=== PATIENT | female | born 1995 | race Two or more races ===

== ENCOUNTER 2024-09-28 08:30 | Outpatient (RCR) | payer MEDICAID, SELFPAY ==
--- NOTE | 2024-09-21 12:59 | PTNOTE_ITS ---
PT OP Initial Eval Patient Information Outpatient Physical Therapy Treatment Date: 09/21/24 Visit Reasons: Low back pain/Plantar Fascial Medical Diagnosis: Back Pain Treatment Dx #1: Back Pain Start of Care: 09/21/24 Date of Onset: 10 years ago Smoking Status Smoking Status: Never smoker Initial Assessment Subjective: Pt is a 29 y/o female reports of chronic back pain with intermittent pain down the left leg. Pt's most recent MRI showed L5-S1 4 mm central disc bulge. Pt has limitation with sitting, standing, chores, self care, walking, and performing recreational activities. Objective: L/S AROM: all motions are WFL Hip PROM: all motions are WFL except IR Hip MMTs: grossly 3/5 Special Test (+) slump (+) SLR Assessment: Pt demonstrate back pain with mobility deficits consistent with MRI findings of disc bulge leading to difficulty with ADLs. Pt will benefit from physical therapy to increase ROM, strength, and work on mobility. Short Term and Correction Goals 1) Decrease back pain to 2/10 in 6 wks to be able to sit and stand more than 30 mins 2) Increase core strength WFL in 6 wks to be able to perform recreational activities 3) Increase hip MMTs grossly to 4-/5 in 6 wks to be able to walk more than 30 mins 4) Indep with HEP Treatment Plan 1) Manual Therapy 2) Therapeutic Activities 3) Therapeutic Exercises 4) Modalities (ice, heat, traction) Frequency and Duration: 2 x wk for 6 wks Certification Dates: 09/21/24 to 12/22/24 Procedure Charges OP PT Eval Mod Complex 30 minutes: Yes
--- NOTE | 2024-09-26 11:28 | PT.ODAYNRPT ---
PT Outpatient Daily Note OP Daily Note Outpatient Physical Therapy Treatment Date: 09/26/24 Visit Reasons: Low back pain/Plantar Fascial Subjective: Pt continues to have pain down the left leg intermittently. Objective: Please see flow chart for list of ther ex performed Assessment: slight decrease in left LE radicular pain post PT session. Plan: Continue with PT and assess left LE pain Length of Time (minutes) of Treatment: 30 Minutes Procedure Charges Therapeutic Exercise 30 minutes: Yes
--- NOTE | 2024-09-28 12:01 | PT.ODAYNRPT ---
PT Outpatient Daily Note OP Daily Note Outpatient Physical Therapy Treatment Date: 09/28/24 Visit Reasons: Low back pain/Plantar Fascial Subjective: Pt's back and leg pain is better since last session. Objective: Please see flow chart for list of ther ex performed Assessment: centralized pain post last session. Pt respond wells to extension biased exercises Plan: Continue with PT Length of Time (minutes) of Treatment: 30 Minutes Procedure Charges Therapeutic Exercise 30 minutes: Yes
== END 2024-10-01 23:59 | disposition home or self-care (01) ==
LOC: CPTX 08:30
DX: M54.50 Low back pain, unspecified (principal); M79.605 Pain in left leg; R26.2 Difficulty in walking, not elsewhere classified; G89.29 Other chronic pain
CPT/HCPCS: 97110; 97162

== ENCOUNTER 2024-10-18 08:00 | Outpatient (RCR) | payer MEDICAID, SELFPAY ==
--- NOTE | 2024-10-05 10:33 | PT.ODAYNRPT ---
PT Outpatient Daily Note OP Daily Note Outpatient Physical Therapy Treatment Date: 10/05/24 Visit Reasons: Low back pain/Plantar fascial Subjective: Pt c/o low back pain. Objective: Please see flow sheet for ther ex list. Assessment: Pt demonstrates good technique with posterior pelvic tilt exercise post verbal cues. Plan: Continue with poC. Length of Time (minutes) of Treatment: 30 Minutes Procedure Charges Therapeutic Exercise 30 minutes: Yes
--- NOTE | 2024-10-07 10:38 | PT.ODAYNRPT ---
PT Outpatient Daily Note OP Daily Note Outpatient Physical Therapy Treatment Date: 10/07/24 Visit Reasons: Low back pain/Plantar fascial Subjective: Pt's back feels better. Pt does not have any concerns. Exercises seem to be helping lately. Objective: Please see flow chart for list of ther ex performed Assessment: decrease pain post PT session and demonstrate improved overall L/S mobility Plan: Continue with PT Length of Time (minutes) of Treatment: 30 Minutes Procedure Charges Therapeutic Exercise 30 minutes: Yes
--- NOTE | 2024-10-10 13:45 | PT.ODAYNRPT ---
PT Outpatient Daily Note OP Daily Note Outpatient Physical Therapy Treatment Date: 10/10/24 Visit Reasons: Low back pain/Plantar fascial Subjective: Pt reports LBP is doing better, notices progress with symptoms. Objective: Please see flow sheet for ther ex list. Assessment: Pt presents in clinic with decrease c/o pain allowing for intervention progression. Plan: Continue with POC. Length of Time (minutes) of Treatment: 30 Minutes Procedure Charges Therapeutic Exercise 30 minutes: Yes
--- NOTE | 2024-10-13 13:39 | PT.ODAYNRPT ---
PT Outpatient Daily Note OP Daily Note Outpatient Physical Therapy Treatment Date: 10/13/24 Visit Reasons: Low back pain/Plantar fascial Subjective: Pt reports LB symptoms have improved, notices she has not had pain for some time now. Objective: Please see flow sheet for ther ex list. Assessment: Pt presents in clinic with no pain to report allowing for interventions progression. Plan: Continue with POC. Length of Time (minutes) of Treatment: 30 Minutes Procedure Charges Therapeutic Exercise 30 minutes: Yes
--- NOTE | 2024-10-18 08:30 | PT.ODAYNRPT ---
PT Outpatient Daily Note OP Daily Note Outpatient Physical Therapy Treatment Date: 10/18/24 Visit Reasons: Low back pain/Plantar fascial Subjective: Pt's back is better and notice decrease LE pain. Objective: Please see flow chart for list of ther ex performed Assessment: progressing with standing exercises. started to teach patient hip hinge and demonstrate with good form Plan: Continue with PT Length of Time (minutes) of Treatment: 30 Minutes Procedure Charges Therapeutic Exercise 30 minutes: Yes
== END 2024-11-01 23:59 | disposition home or self-care (01) ==
LOC: CPTX 08:00
DX: M54.50 Low back pain, unspecified (principal); M79.606 Pain in leg, unspecified; R26.2 Difficulty in walking, not elsewhere classified
CPT/HCPCS: 97110

== ENCOUNTER 2025-03-26 08:06 | Emergency (ER) | payer MEDICAID, SELFPAY ==
[2025-03-26 08:08] VITALS: BMI 32.4
[2025-03-26 08:13] VITALS: BP 97/70; PULSE 117; RESP 18; TEMP 37.3; O2SAT 100
--- NOTE | 2025-03-26 08:31 | PD.EDADULT ---
ED General RME/HPI General Chief complaint: Skin/Abscess/Foreign Body Stated complaint: RASH SINCE YESTERDAY Time Seen by Provider: 03/26/25 08:11 Arrival date/time: 03/26/25 08:06 Limitations: no limitations RME / HPI RME / HPI narrative: DR. BUTT MAIN ED EVALUATION: 30 year old female presents to the Emergency Department with complaint of diffuse generalized face and body rash onset yesterday afternoon. She states she had shrimp and Thursday. No recent antibiotics or new medicines. No angioedema. PMHx: Denies any PMHx, surgeries, daily medications, or known allergies. Social Hx: No tobacco, alcohol, or substance use. Related Data Home Medications ?Medication ?Instructions ?Recorded ?Confirmed [id number] 1 mg 1 tab PO DAILY 07/31/20 06/12/23 tablet acetaminophen 500 mg tablet 500 mg PO Q6H PRN Pain 06/12/23 06/12/23 (Tylenol Extra Strength) Previous Rx's ?Medication ?Instructions ?Recorded cyclobenzaprine 10 mg tablet 10 mg PO TID PRN muscle spasm #30 10/12/23 tabs ibuprofen 800 mg tablet 800 mg PO Q8H PRN pain #30 tabs 10/12/23 famotidine 20 mg tablet (Pepcid) 20 mg PO BID allergic reaction #20 03/26/25 tabs prednisone 20 mg tablet See Taper PO QDAY allergic 03/26/25 reaction #18 tabs Allergies Allergy/AdvReac Type Severity Reaction Status Date / Time No Known Allergies Allergy Verified 06/12/23 20:35 Review of Systems Review of Systems Systems Reviewed: All systems reviewed, normal except as documented Past Medical History Social History SMOKING STATUS: Never smoker SUBSTANCE USE: does not use ALCOHOL: Never ED Exam General Limitations: Present no limitations General appearance: Present alert and in no apparent distress Head Head exam: Present atraumatic, normocephalic and normal inspection Eye Eye exam: Present normal appearance, PERRL and EOMI ENT ENT exam: Present normal exam, normal oropharynx and mucous membranes moist Neck Neck exam: Present normal inspection, full ROM and trachea midline Chest Chest inspection: Present normal inspection and symmetric chest wall rise Respiratory Respiratory exam: Present normal lung sounds bilaterally Cardiovascular Cardiovascular exam: Present regular rate, normal rhythm and normal heart sounds Abdominal Exam Abdominal exam: Present soft and normal bowel sounds Extremities Exam Extremities exam: Present normal inspection and full ROM Back Exam Back exam: Present normal inspection and full ROM Neurological Exam Neurological exam: Present alert, oriented X3 and CN II-XII intact Psychiatric Psychiatric exam: Present normal affect and normal mood Skin Skin exam: Present warm, dry, intact, normal color and rash (diffuse generalized face and body rash) Course Quality Measures none Orders Category Date Time Status Bedside COVID-19 Antigen Test NOW Care 03/26/25 08:34 Active Bedside Influenza A&B Antigen Test NOW Care 03/26/25 08:35 Completed Insert IV NOW Care 03/26/25 08:18 Active Blood Culture (Lab) Stat Lab 03/26/25 09:05 Received CBC Stat Lab 03/26/25 09:05 Completed CMP [Comprehensive Metabolic Panel] Stat Lab 03/26/25 09:05 Completed Lactic Acid [Lactate (Lactic Acid)] Stat Lab 03/26/25 09:05 Completed Strep A Rapid Stat Lab 03/26/25 09:50 Completed Urinalysis Stat Lab 03/26/25 10:25 Completed Acetaminophen Tab [Tylenol Tab] Med 03/26/25 08:36 Discontinued 650 mg PO X1 ONE DiphenhydrAMINE INJ [Benadryl Inj] Med 03/26/25 08:18 Discontinued 50 mg IVP X1 ONE Famotidine [Pepcid] Med 03/26/25 08:18 Discontinued 40 mg PO X1 ONE MethylPREDNISolone. [SoluMEDROL Inj] Med 03/26/25 12:33 Discontinued 60 mg IVP X1 ONE MethylPREDNISolone.* [SoluMEDROL Inj] Med 03/26/25 08:18 Discontinued 125 mg IVP X1 ONE Sodium Chloride 0.9% 1000 ml [Ns] 1,000 ml Med 03/26/25 08:18 Discontinued IV 999 mls/hr Reevaluation(s) Reevaluation #1: Patient doing better. Time: 12:31 Vital Signs Vital signs: Vital Signs Temperature 99.2 F 03/26/25 08:13 Pulse Rate 117 H 03/26/25 08:13 Respiratory Rate 18 03/26/25 08:13 Blood Pressure 97/70 03/26/25 08:13 Pulse Oximetry (%) 100 03/26/25 08:13 Oxygen Delivery Method Room Air 03/26/25 08:13 Discharge Plan Plan Patient Disposition: HOME (Self Care) Patient condition on transfer: Stable Prescriptions/Referrals Prescriptions/Med Rec: New prednisone 20 mg tablet See Taper PO QDAY MDD 3 Qty: 18 0RF Taper: Prednisone Taper 20 mg DAILY for 9 Days and 0 Hour 10 mg DAILY for 2 Days and 0 Hour 5 mg DAILY for 7 Days and 0 Hour Rx Instructions: Take 3 Tabs q Day for 3 days then take 2 tabs q Day for 3 days then take 1 tablet q Day for 3 days then D/C famotidine [Pepcid] 20 mg tablet 20 mg PO BID MDD 2 Qty: 20 0RF No Action [id number] 1 mg Tablet 1 tab PO DAILY acetaminophen [Tylenol Extra Strength] 500 mg Tablet 500 mg PO Q6H PRN (Reason: Pain) cyclobenzaprine 10 mg tablet 10 mg PO TID PRN (Reason: muscle spasm) Qty: 30 0RF ibuprofen 800 mg tablet 800 mg PO Q8H PRN (Reason: pain) Qty: 30 0RF Problem List Clinical Impression: Rash due to allergy Patient/Caregiver Discharge Instructions Education Materials: ED Medicine Reaction: Allergic Additional Instructions: Please follow-up with your primary care physician within a week and consider allergy testing and/of immunology referral. Return to the Emergency Department as needed. Print Language: Nauruan Stand Alone Forms: [employer] Award Info., Work/School Release, Patient Portal Info Letter MDM Narrative [facility] hospital course: I, Chinyere Martin am scribing for and in the presence of Dr. Butt. Clinical Information Provided by patient Medical Records Reviewed [facility] Meds/Rx Considered, not Ordered None Labs/Rad/Tests considered, not Ordered None Chronic Illness/Social Conditions which may negatively complicate care or outcome(s)-explain: None or not applicable Add or document further as needed: Denies any PMHx, surgeries, daily medications, or known allergies. EKG EKG not done Lab Interpretation Labs: interpreted by pa Lab(s) interpretation(s): No acute findings. Imaging Imaging interpretation: none Medication Administration(s) Medication Administration History Discontinued Medications Acetaminophen (Acetaminophen 325 Mg Tablet) 650 mg PO X1 ONE Stop: 03/26/25 08:37 Last Admin: 03/26/25 08:49 Dose: 650 mg Documented By: TM Diphenhydramine HCl (Diphenhydramine Inj 50 Mg/Ml Vial) 50 mg IVP X1 ONE Stop: 03/26/25 08:19 Last Admin: 03/26/25 08:50 Dose: 50 mg Documented By: TM Famotidine (Famotidine 20 Mg Tablet) 40 mg PO X1 ONE Stop: 03/26/25 08:19 Last Admin: 03/26/25 08:50 Dose: 40 mg Documented By: TM Sodium Chloride (Ns) 1,000 mls @ 999 mls/hr IV .Q1H1M ONE Stop: 03/26/25 09:18 Last Infusion: 03/26/25 09:51 Dose: Infused Documented By: Admin: 03/26/25 08:50 Dose: 999 mls/hr Documented By: TM Methylprednisolone Sodium Succinate (Methylprednisolone Sod Succ 62.5 Mg/Ml 2ml Vial) 125 mg IVP X1 ONE Stop: 03/26/25 08:19 Last Admin: 03/26/25 08:49 Dose: 125 mg Documented By: TM Methylprednisolone Sodium Succinate (Methylprednisolone Sod Succ 40 Mg Vial) 60 mg IVP X1 ONE Stop: 03/26/25 12:34 Last Admin: 03/26/25 13:00 Dose: 60 mg Documented By: TM Diagnosis Differential diagnosis: allergic reaction, rash, cellulitis Most likely dx, and/or detailed dx discussion: Rash due to allergy Dispositon Disposition: Discharge Home
[2025-03-26] MEDS: ACETAMINOPHEN 325 MG TABLET 650 MG PO (08:49)
[2025-03-26] MEDS: MethylPREDNISolone SOD SUCC 62.5 MG/ML 2ML VIAL 125 MG IVP (08:49)
[2025-03-26] MEDS: FAMOTIDINE 20 MG TABLET 40 MG PO (08:50)
[2025-03-26] MEDS: DiphenhydrAMINE INJ 50 MG/ML VIAL IVP (08:50)
[2025-03-26] MEDS: SODIUM CHLORIDE 0.9% 1000 ML 1,000 ML 999 ML IV (08:50)
[2025-03-26 09:31] LABS: Basophils % (Auto) 0 % (0-2.5); Eosinophils # (Auto) 0.2 Thou/mm3 (0.0-0.5); Eosinophils % (Auto) 2 % (0-10); Hematocrit 36.9 % (36.0-46.0); Hemoglobin 13.2 g/dL (12.0-16.0); Immature Granulocytes % (Auto) 1 % (0-0); Immature Granulocytes Auto 0.08 Thou/mm3 (0.00-0.00); Lymphocytes # (Auto) 0.8 Thou/mm3 (1.0-4.8); Lymphocytes % (Auto) 8 % (10-50); Mean Corpuscular HGB Conc 35.8 g/dl (31.0-37.0); Mean Corpuscular Hemoglobin 30.1 pg (25.0-35.0); Mean Corpuscular Volume 84 fL (80-100); Monocytes # (Auto) 0.4 Thou/mm3 (0.0-0.8); Monocytes % (Auto) 4 % (0-12); Neutrophils # (Auto) 8.7 Thou/mm3 (1.8-7.7); Neutrophils % (Auto) 85 % (37-80); Nucleated Red Blood Cell % 0 /100 WBC (0); Platelet Count 222 Thou/mm3 (140-440); RDW Standard Deviation 39.6 fL (36.4-46.3); Red Blood Count 4.38 Miln/mm3 (4.00-5.20); White Blood Count 10.2 Thou/mm3 (3.6-11.0)
[2025-03-26 09:43] LABS: Alanine Aminotransferase 40 U/L (10-49); Albumin/Globulin Ratio 1.3 (1.2-2.2); Alkaline Phosphatase 51 U/L (46-116); Anion Gap 11 (7-16); Aspartate Amino Transferase 31 U/L (0-34); BUN/Creatinine Ratio 7 Ratio (12-20); Bilirubin,Total 0.6 mg/dL (0.3-1.2); Blood Urea Nitrogen 7 mg/dL (9-23); Calcium 8.5 mg/dL (8.3-10.6); Calcium (Corrected) 8.5 mg/dL (8.5-10.1); Carbon Dioxide 23.8 mMol/L (20.0-31.0); Chloride 96 mMol/L (98-107); Estimated Creatinine Clearance 95.3 mL/min (>60); Globulin 3.1 gm/dL (2.3-3.5); Glucose 135 mg/dL (74-106); Osmolality,Calculated 262 (275-295); Potassium 3.8 mMol/L (3.4-5.1); Sodium 131 mMol/L (136-145); Total Protein 7.1 gm/dL (5.7-8.2); eGFR > 60 See Note
[2025-03-26 10:33] LABS: Collection Type, Urine Clean Catch
[2025-03-26 10:41] LABS: Strep A Rapid Negative (Negative)
[2025-03-26 10:50] LABS: Bacteria,Urine Rare; Bilirubin,Urine Negative (Negative); Blood,Urine 1+ (Negative); Color,Urine Lt-Yellow (Lt Yel-Yel); Glucose, Urine Negative (Negative); Ketones,Urine Negative (Negative); Leukocyte Esterase,Urine Positive (Negative); Nitrite,Urine Negative (Negative); PH,Urine 6.5 (5.0-7.0); Protein,Urine Negative (Neg - Trace); RBC,Urine 9 /hpf (0-3); Specific Gravity,Urine 1.008 (1.001-1.035); Squamous Epithelial Cell,Urine 9 /hpf (0-5); Urobilinogen,Urine Negative mg/dL (0.0-1.0); WBC,Urine 18 /hpf (0-5)
[2025-03-26 10:51] LABS: Clarity,Urine Hazy (Clear/Hazy)
[2025-03-26 11:36] VITALS: BP 116/85; PULSE 86; RESP 18; TEMP 36.3; O2SAT 95
--- NOTE | 2025-03-26 13:07 | PC.NURSE ---
PT UP TO BR, ABLE TO AMBULATE INDEPENDENTLY W/STEADY GAIT.
[2025-03-26 14:18] VITALS: BP 105/64; PULSE 80; RESP 17; TEMP 36.6; O2SAT 99
== END 2025-03-26 14:20 | disposition home or self-care (01) ==
LOC: SERX 09:23
PROVIDERS: Emergency Provider Family Medicine; PCP Family Medicine
DX: T78.40XA Allergy, unspecified, initial encounter (principal); R21 Rash and other nonspecific skin eruption
CPT/HCPCS: 36415; 80053; 81001; 83605; 85025; 87040; 87400; 87651; 87811; 96361; 96374; 99284; J1200; J2919; J7030; A9270